=== PATIENT | female | born 1960 | race Caucasian/White ===

== ENCOUNTER 2024-07-19 01:00 | Emergency (ER) | payer OTHER, SELFPAY ==
[2024-07-19 01:12] VITALS: PULSE 112; O2SAT 99
[2024-07-19 01:13] VITALS: BP 163/103; PULSE 110; O2SAT 100
[2024-07-19 01:30] VITALS: BP 175/96; PULSE 97; O2SAT 99
[2024-07-19 01:35] VITALS: BP 163/103; PULSE 99; RESP 18; TEMP 36.7; O2SAT 99; BMI 23.9
[2024-07-19 02:00] VITALS: BP 158/95; PULSE 83; O2SAT 95
--- NOTE | 2024-07-19 02:09 | ED.NAVMDI ---
HPI - Nausea/Vomiting/Diarrhea General Chief complaint: Nausea/Vomiting/Diarrhea Stated complaint: chest pain says she needs an EKG Time Seen by Provider: 07/19/24 02:08 Source: patient Mode of arrival: Ambulatory Limitations: no limitations History of Present Illness HPI Narrative: 63-year-old female with reported history of prolonged QT, depression and GERD presents with complaint of nausea vomiting and inability to keep fluids down. Patient states fevers. [place] a little bit chilled. Denies chest pain or shortness of breath. States she has had some abdominal discomfort but denies. States she had persistent dry heaves has been unable to rehydrate. States no diarrhea or constipation. No black or bloody stools. No dysuria urgency or frequency. No back or flank pain. Patient states her heart rate felt very fast she has a history of prolonged QT after getting very dehydrated when she was visiting [facility]. States that she has been told by her physician to go to the ER for fluid resuscitation if she can not keep fluids down. States home medications include duloxetine, pantoprazole and Zyrtec. Has had a prior fallopian tube removed for assist. Patient states no regular tobacco, alcohol or recreational drugs. They are visiting the area from [place], [place]. States no known sick contacts. Related Data Home Medications Medication Instructions Recorded Confirmed duloxetine 20 mg capsule,delayed 20 mg PO BID 07/19/24 07/19/24 release pantoprazole 20 mg tablet,delayed mg PO 07/19/24 release Allergies Allergy/AdvReac Type Severity Reaction Status Date / Time Sulfa (Sulfonamide Allergy Unknown Verified 07/19/24 01:33 Antibiotics) Review of Systems Review of Systems ROS Unobtainable: All systems reviewed & are unremarkable except as noted in HPI and below Exam Narrative Exam Narrative: GENERAL: Alert and oriented x three, female in mild distress HEENT: Head normocephalic, atraumatic, EOMI, pupils reactive, face symmetric, moist mucous membranes NECK: Supple, full range of motion CARDIOVASCULAR: Regular rate and rhythm without murmurs, rubs or gallops. No JVD. No edema bilateral lower extremities. RESPIRATORY: Breath sounds equal bilaterally, no wheezes rales or rhonchi. ABDOMEN: Soft, nontender. Nondistended. Normoactive bowel sounds all 4 quadrants. No guarding or rebound, rigidity, no mass : No CVA tenderness EXTREMITIES: Normal range of motion, no clubbing or edema. Neurovascularly intact NEUROLOGICAL: Cranial nerves II through XII grossly intact. Moving all extremities SKIN: Warm, dry, no petechiae, no rashes or lesions. Initial Vital Signs Initial Vital Signs: Vital Signs Pulse Rate 112 H 07/19/24 01:12 Pulse Oximetry 99 07/19/24 01:12 Course Orders Ordered: ED Orders 07/19/24 01:20 Complete Blood Count AUTO DIFF Stat Comprehensive Metabolic Panel Stat Lipase Stat Troponin & CK Cardiac Panel Stat 07/19/24 02:18 EKG-12 Lead Stat Discontinued Medications Sodium Chloride (Normal Saline 0.9%) 1,000 mls @ 1,000 mls/hr IV BOLUS ONE Stop: 07/19/24 03:17 Last Infusion: 07/19/24 03:53 Dose: Infused Documented By: Admin: 07/19/24 02:38 Dose: 1,000 mls/hr Documented By: CHIQUITA Lorazepam (Lorazepam 2 Mg/Ml Inj) 0.5 mg IV NOW ONE Stop: 07/19/24 02:19 Last Admin: 07/19/24 02:39 Dose: 0.5 mg Documented By: CHIQUITA Vital Signs Vital signs: Vital Signs - 8 hr 07/19/24 01:12 07/19/24 01:13 07/19/24 01:13 Temperature Pulse Rate 112 H 110 H Respiratory Rate Blood Pressure 163/103 H Pulse Oximetry 99 100 Oxygen Delivery Method 07/19/24 01:30 07/19/24 01:30 07/19/24 01:35 Temperature 98.1 F Pulse Rate 97 H 99 H Respiratory Rate 18 Blood Pressure 175/96 H 163/103 H Pulse Oximetry 99 99 Oxygen Delivery Method Room Air Room Air 07/19/24 02:00 07/19/24 02:00 07/19/24 03:55 Temperature Pulse Rate 83 Respiratory Rate Blood Pressure 158/95 H 140/80 Pulse Oximetry 95 Oxygen Delivery Method Room Air 07/19/24 03:55 Temperature Pulse Rate 72 Respiratory Rate Blood Pressure Pulse Oximetry 97 Oxygen Delivery Method Room Air MDM - Nausea/Vomiting/Diarrhea Lab Data 07/19/24 01:20 07/19/24 01:20 Labs: Lab Results 07/19/24 Range/Units 01:20 WBC 9.6 (4.5-11.0) X10^3/uL RBC 4.69 (4.0-5.2) X10^6/uL Hgb 14.1 (12.0-16.0) g/dL Hct 41.6 (36-46) % MCV 88.6 (80-100) fL MCH 30.0 (26-34) PG MCHC 33.8 (30-36) % RDW 13.1 (11.6-14.8) % Plt Count 247 (150-400) X10^3/uL Neut % (Auto) 70.6 (50-75) % Lymph % (Auto) 22.6 L (25-40) % [place] % (Auto) 4.1 (3-14) % Eos % (Auto) 2.3 (2-4) % Baso % (Auto) 0.4 (0-2) % Neut # (Auto) 6800 (6765-7487) /uL Lymph # (Auto) 2200 (1427-1792) /uL [place] # (Auto) 400 (0-900) /uL Eos # (Auto) 200 (0-450) /uL Baso # (Auto) 0 (0-100) /uL Sodium 135 L (137-145) mmol/L Potassium 3.5 (3.4-5.1) mmol/L Chloride 99 (98-107) mmol/L Carbon Dioxide 29 (22-32) mmol/L BUN 25 H (7-17) mg/dL Creatinine 0.74 (0.52-1.04) mg/dL Estimated GFR > 60 (>60) mL/min BUN/Creatinine Ratio 33.8 H (6-22) Glucose 122 H (80-110) mg/dL Calcium 9.7 (8.4-10.2) mg/dL Total Bilirubin 0.6 (0.2-1.3) mg/dL AST 29 (14-36) IU/L ALT 21 (<35) IU/L Alkaline Phosphatase 86 (38-126) U/L Total Creatine Kinase 90 (30-135) U/L Troponin I < 0.012 (0.01-0.034) ng/mL Total Protein 8.3 H (6.3-8.2) g/dL Albumin 4.8 (3.5-5.0) g/dL Globulin 3.5 (1.7-4.1) g/dL Albumin/Globulin Ratio 1.4 (1.0-2.8) Lipase 60 (23-300) U/L Urine Dip Bedside Urine Glucose Negative Bedside Urine Bilirubin - Negative Bedside Urine Ketone - Negative Urine Specific [place] 1.010 Bedside Urine Occult Blood - Negative Bedside Urine pH 8.5 Bedside Urine Protein - Negative Bedside Urine Urobilinogen - Negative Bedside Urine Nitrite - Negative Bedside Urine Leukocytes - Negative Esterase ECG Data Attestation: I personally reviewed and interpreted this ECG as follows: Interpretation: Sinus rhythm rate of 73 CT 184 QRS 82 QTC 482. Nonspecific change. MDM Narrative Medical decision making narrative: 63-year-old history of nausea vomiting no diarrhea. Does have a history reported of prolonged QT and states she has been having difficulty keeping fluids down this evening. Patient initially was tachycardic. Labs white count of 9.6 hemoglobin of 14 platelets of 247. Sodium is 139 potassium 3.5 chloride 99 CO2 is 29 with a BUN 25 creatinine 0.74 glucose of 122 calcium is 9.7 LFTs are negative, troponins less than 0.125. Lipase is 60 Point of care urine shows specific gravity of 1.010. Otherwise negative. EKG EKG shows sinus rhythm rate of 73 CT 184 QRS 82 QTC 482. No acute ST elevation, nonspecific change. Fluids and Ativan for antiemetic, patient is feeling improved. Reviewed her findings from today. After discussion with patient felt we can hold off on CT imaging she is got overall benign exam. No persistent vomiting in the department. Discussed return precautions. Patient and has been at bedside both expressed their understanding. Discharge Plan Departure Patient Disposition: Home Clinical Impression: Vomiting Instructions: DI for Vomiting -- Adult Activity Restrictions/Additional Instructions: I hope you continue to feel improved. During daylight hours, you can start to take very small sips every 15-20 minutes if tolerating these over an hour to you can start to drink large amounts of fluid. If tolerating that for several hours then you can start to add solids slowly. Please return for fevers, new or worsening abdominal back or flank pain, persistent vomiting, signs of dehydration, black or bloody stools, difficulty with urination or other new or concerning changes. Prescriptions: No Action duloxetine 20 mg capsule,delayed release(DR/EC) 20 mg PO BID pantoprazole 20 mg tablet,delayed release (DR/EC) PO Stand Alone Forms: Patient Portal/API
--- NOTE | 2024-07-19 02:18 | EKG_ITS ---
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
[2024-07-19] MEDS: SODIUM CHLORIDE 0.9% 1,000 ML 1000 ML IV (02:38)
[2024-07-19 02:39] LABS: Add Manual Diff / Slide Review NO; Basophils Absolute Auto 0 /uL (0-100); Basophils Percent Auto 0.4 % (0-2); Eosinophils Absolute Auto 200 /uL (0-450); Eosinophils Percent Auto 2.3 % (2-4); Hematocrit 41.6 % (36-46); Hemoglobin 14.1 g/dL (12.0-16.0); Lymphocytes Absolute Auto 2200 /uL (1100-4500); Lymphocytes Percent Auto 22.6 % (25-40); Mean Corpuscular HGB Conc 33.8 % (30-36); Mean Corpuscular Volume 88.6 fL (80-100); Monocytes Absolute Auto 400 /uL (0-900); Monocytes Percent Auto 4.1 % (3-14); Neutrophils Absolute Auto 6800 /uL (1500-7000); Neutrophils Percent Auto 70.6 % (50-75); Platelet Count 247 X10^3/uL (150-400); Red Blood Cell Count 4.69 X10^6/uL (4.0-5.2); Red Cell Distribution Width 13.1 % (11.6-14.8); White Blood Cell Count 9.6 X10^3/uL (4.5-11.0)
[2024-07-19] MEDS: LORazepam 2 MG/ML INJ 0.5 MG IV (02:39)
[2024-07-19 02:45] LABS: Alanine Aminotransferase 21 IU/L (<35); Albumin 4.8 g/dL (3.5-5.0); Albumin Globulin Ratio 1.4 (1.0-2.8); Alkaline Phosphatase 86 U/L (38-126); Aspartate Aminotransferase 29 IU/L (14-36); BUN Creatinine Ratio 33.8 (6-22); Bilirubin Total 0.6 mg/dL (0.2-1.3); Blood Urea Nitrogen 25 mg/dL (7-17); Calcium 9.7 mg/dL (8.4-10.2); Carbon Dioxide 29 mmol/L (22-32); Chloride 99 mmol/L (98-107); Creatine Kinase 90 U/L (30-135); Estimated Glomerular Filt Rate > 60 mL/min (>60); Globulin 3.5 g/dL (1.7-4.1); Glucose 122 mg/dL (80-110); HEMOLYSIS < 15 (0-50); Lipase 60 U/L (23-300); Potassium 3.5 mmol/L (3.4-5.1); Sodium 135 mmol/L (137-145); Total Protein 8.3 g/dL (6.3-8.2)
[2024-07-19 02:57] LABS: Troponin I < 0.012 ng/mL (0.01-0.034)
[2024-07-19 03:55] VITALS: BP 140/80; PULSE 72; O2SAT 97
== END 2024-07-19 04:06 | disposition home or self-care (01) ==
PROVIDERS: Emergency Provider Emergency Medicine
DX: R11.10 Vomiting, unspecified (principal); R00.0 Tachycardia, unspecified; R50.9 Fever, unspecified; R10.9 Unspecified abdominal pain
CPT/HCPCS: 36415; 80053; 81003; 82550; 83690; 84484; 85025; 93005; 96361; 96374; 99284; J2060